=== PATIENT | male | born 1965 | race Caucasian/White ===

== ENCOUNTER 2020-11-20 10:47 | Outpatient (REF) | payer MEDICARE, SELFPAY ==
[2020-11-20 12:30] LABS: SARS COV2 PCR INHOUSE NEGATIVE (Negative)
== END 2020-11-20 10:48 | disposition home or self-care (01) ==
LOC: HO.LAB 10:47
PROVIDERS: Visit Provider Internal Medicine
DX: Z20.822 Contact with and (suspected) exposure to COVID-19 (principal)
CPT/HCPCS: C9803; U0003